=== PATIENT | male | born 2005 | race Caucasian/White ===

== ENCOUNTER 2023-12-02 08:47 | Emergency (ER) | payer OTHER ==
[~2023-12-02] VITALS: Ht 180.3 cm; Wt 94.0 kg
[2023-12-02] MEDS ORDERED: ONDA-282 PO (08:54)
[2023-12-02] MEDS: NS 1,000 ML IV ONE (09:16)
[2023-12-02 09:23] LABS: BASO % 0.7 % (0.0-1.0); EOS # 0.1 10^3/uL (0.0-0.5); EOS % 1.5 % (0.0-3.0); HEMATOCRIT 49.7 % (42.0-52.0); HEMOGLOBIN 16.1 g/dl (13.5-17.5); LYMPH % 33.7 % (24.0-44.0); MEAN CORPUSCULAR HEMOGLOBIN 29.3 pg (27.0-33.0); MEAN CORPUSCULAR HGB CONC 32.4 g/dl (32.0-36.5); MEAN CORPUSCULAR VOLUME 90.4 fl (80.0-96.0); MONO # 0.6 10^3/uL (0.0-0.8); MONO % 9.9 % (2.0-8.0); NEUTROPHILS # 3.3 10^3/uL (1.5-8.5); PLATELET COUNT, AUTOMATED 350 10^3/uL (150-450); WHITE BLOOD COUNT 6.1 10^3/uL (4.0-10.0)
[2023-12-02 09:43] LABS: LIPASE 54 U/L (12-53)
[2023-12-02 09:45] LABS: ALBUMIN 4.5 G/DL (3.2-5.2); ALKALINE PHOSPHATASE 78 U/L (46-116); ALT/SGPT 24 U/L (7.0-40); AST/SGOT 15 U/L (<34); BILIRUBIN,DIRECT < 0.1 MG/DL (<0.4); BILIRUBIN,TOTAL 0.3 MG/DL (0.3-1.2); TOTAL PROTEIN 7.4 G/DL (5.7-8.2)
[2023-12-02] MEDS: METOCLOPRAMIDE INJ 10MG/2ML VIAL IV ONE (09:54)
[2023-12-02] MEDS ORDERED: ISOVUE-370 76% 100ML VIAL As Ordered ONE (09:57)
[2023-12-02] MEDS ORDERED: REGL5TAB2 PO (11:13)
[2023-12-02 11:25] VITALS: BP 132/77; TEMP 97.7; O2SAT 100
== END 2023-12-02 11:28 | disposition home or self-care (01) ==
LOC: M ED 08:47
DX: R11.2 Nausea with vomiting, unspecified (principal); R19.7 Diarrhea, unspecified; Z88.0 Allergy status to penicillin; Z88.1 Allergy status to other antibiotic agents
CPT/HCPCS: 74177; 80047; 80076; 83690; 83735; 85025; 96361; 96374; 99284; J2765; Q9967

== ENCOUNTER 2025-01-27 15:55 | Emergency (ER) | payer OTHER ==
[~2025-01-27] VITALS: Ht 180.3 cm; Wt 102.3 kg
[~2025-01-27 15:55] MED LIST: ONDA-282 PO; REGL5TAB2 PO
[2025-01-27] MEDS ORDERED: NAPR-885 PO (16:04)
[2025-01-27 17:49] VITALS: TEMP 98.3
[2025-01-27] MEDS ORDERED: PRED20TA PO (20:06)
[2025-01-27] MEDS: predniSONE 20 MG TAB PO ONE (20:15)
[2025-01-27 20:18] VITALS: BP 140/98; O2SAT 98
== END 2025-01-27 20:20 | disposition home or self-care (01) ==
LOC: M ED 15:55
DX: T63.441A Toxic effect of venom of bees, accidental (unintentional), initial encounter (principal); Y92.9 Unspecified place or not applicable; Y93.89 Activity, other specified; F17.200 Nicotine dependence, unspecified, uncomplicated; Z88.0 Allergy status to penicillin; Z88.1 Allergy status to other antibiotic agents
CPT/HCPCS: 99284; J7512